=== PATIENT | male | born 1965 | race Caucasian/White ===

== ENCOUNTER 2021-04-13 19:37 | Inpatient (IN) | payer OTHER ==
[2021-04-13] MEDS ORDERED: MENTHOL/PHENOL 1 EACH UD MM PRN (22:10)
[2021-04-13] MEDS ORDERED: MAG HYDROX/AL HYDROX/SIMETH 30 ML UNIT-DOSE CUP PO PRN (22:10)
[2021-04-13] MEDS ORDERED: MAGNESIUM CITRATE 300 ML BOTTLE PO PRN (22:10)
[2021-04-13] MEDS ORDERED: ACETAMINOPHEN 325 MG TABLET (FP) PO PRN ×2 (22:10)
[2021-04-13] MEDS ORDERED: IBUPROFEN 400 MG TABLET (FP) PO PRN (22:10)
[2021-04-13] MEDS ORDERED: BISMUTH SUBSALICYLATE 524 MG/30 ML PO PRN (22:10)
[2021-04-13] MEDS ORDERED: MAGNESIUM HYDROX 2400MG/30ML ORAL SUSPENSION 30 ML CUP PO PRN (22:10)
[2021-04-13] MEDS ORDERED: diazePAM 5 MG TABLET PO PRN (22:12)
[2021-04-13 22:48] VITALS: BMI 18.6
[2021-04-14] MEDS: ONDANSETRON *ODT* 4 MG TABLET SL PRN (02:03)
[2021-04-14] MEDS: diazePAM 5 MG TABLET PO SCH ×5 (02:03→22:12)
[2021-04-14] MEDS ORDERED: PANTOPRAZOLE 40 MG TABLET PO ONE (09:00)
[2021-04-14] MEDS: hydrOXYzine PAMOATE 25 MG CAPSULE (FP) PO PRN ×3 (09:17→20:11)
[2021-04-14] MEDS ORDERED: PANTOPRAZOLE 40 MG TABLET PO SCH (10:00)
[2021-04-14] MEDS ORDERED: HYDROCHLOROTHIAZIDE 12.5 MG CAPSULE (FP) PO SCH (10:00)
[2021-04-14] MEDS ORDERED: VALSARTAN 160 MG TABLET PO SCH (10:00)
[2021-04-14] MEDS: PRENATAL VITAMINS W/ FOLIC ACID TABLET (FP) PO SCH (10:23)
[2021-04-14 10:37] LABS: HEMATOCRIT 43.2 % (35.4-49); HEMOGLOBIN 14.6 GM/dL (11.7-16.9); MCHC 33.8 g/dl (32.0-35.9); MEAN CELL VOLUME 97.8 fl (80-96); MEAN PLT VOLUME 8.5 fl (7.5-11.1); PLATELET COUNT 221 10^3/uL (134-434); RBC 4.42 M/mm3 (4.00-5.60); RDW 14.9 % (11.9-15.9); WHITE BLOOD COUNT 7.6 K/mm3 (4.0-10.0)
[2021-04-14 11:02] LABS: ALBUMIN 3.6 g/dl (3.4-5.0)
[2021-04-14 11:07] LABS: CREATININE 2.8 mg/dL (0.55-1.3)
[2021-04-14 11:08] LABS: TOT PROT 6.8 g/dl (6.4-8.2)
[2021-04-14 11:09] LABS: CALCIUM 8.8 mg/dL (8.5-10.1)
[2021-04-14 11:18] LABS: BLOOD UREA NITROGEN 38.6 mg/dL (7-18)
[2021-04-14 11:59] LABS: BILIRUBIN,TOTAL 0.8 mg/dL (0.2-1)
[2021-04-14] MEDS ORDERED: PATIENT'S OWN MEDICATION (NON-FORMULARY) (Valsartan/Hydrochlorothiazide [Valsartan-Hctz 16 PO SCH (12:15)
[2021-04-14] MEDS ORDERED: MELATONIN 5 MG TABLETS PO SCH (22:00)
[2021-04-14] MEDS ORDERED: THIAMINE HCL 100 MG TABLET (FP) PO SCH (22:00)
[2021-04-14] MEDS: METHOCARBAMOL 500 MG TABLET PO PRN (22:11)
[2021-04-15] MEDS ORDERED: PATIENT'S OWN MEDICATION (NON-FORMULARY) (Omeprazole [Omeprazole] 40 MG) PO SCH (06:00)
[2021-04-15] MEDS ORDERED: PANTOPRAZOLE 40 MG TABLET PO SCH (06:00)
[2021-04-15] MEDS: diazePAM 5 MG TABLET PO SCH ×2 (06:18→15:13)
[2021-04-15] MEDS ORDERED: PATIENT'S OWN MEDICATION (NON-FORMULARY) (Valsartan/Hydrochlorothiazide [Valsartan-Hctz 16 PO SCH (10:00)
[2021-04-15] MEDS ORDERED: PATIENT'S OWN MEDICATION (NON-FORMULARY) (Omeprazole [Omeprazole] 20 MG Tablet.Dr) PO SCH (10:00)
[2021-04-15] MEDS: hydrOXYzine PAMOATE 25 MG CAPSULE (FP) PO PRN (10:25)
[2021-04-15] MEDS: METHOCARBAMOL 500 MG TABLET PO PRN (10:25)
[2021-04-15] MEDS: PRENATAL VITAMINS W/ FOLIC ACID TABLET (FP) PO SCH (10:25)
[2021-04-15] MEDS: hydrOXYzine PAMOATE 50 MG CAPSULE (FP) PO SCH ×2 (11:35→20:13)
[2021-04-15 13:59] LABS: ALBUMIN 3.3 g/dl (3.4-5.0); BLOOD UREA NITROGEN 36.8 mg/dL (7-18); CALCIUM 8.5 mg/dL (8.5-10.1)
[2021-04-15 14:02] LABS: CREATININE 1.8 mg/dL (0.55-1.3); PHOSPHOROUS 2.8 mg/dL (2.5-4.9)
[2021-04-15] MEDS: ONDANSETRON *ODT* 4 MG TABLET SL PRN (14:16)
[2021-04-15 18:01] VITALS: BP 121/76; PULSE 75; TEMP 98.6
[2021-04-16] MEDS ORDERED: diazePAM 5 MG TABLET PO SCH (06:00)
[2021-04-17] MEDS ORDERED: diazePAM 5 MG TABLET PO ONE (06:00)
== END 2021-04-15 20:00 | disposition left against medical advice (07) | DRG 894 ==
LOC: YASAS 19:37 → Y6N 23:02
PROVIDERS: ADMIT Allergy & Immunology; ATTEND Allergy & Immunology
PROC: HZ2ZZZZ Detoxification Services for Substance Abuse Treatment (ICD-10-PCS; principal; 2021-04-13)
DX: F10.230 Alcohol dependence with withdrawal, uncomplicated (principal); E46 Unspecified protein-calorie malnutrition; Z68.1 Body mass index [BMI] 19.9 or less, adult; F10.220 Alcohol dependence with intoxication, uncomplicated; I10 Essential (primary) hypertension; K21.9 Gastro-esophageal reflux disease without esophagitis; Z87.81 Personal history of (healed) traumatic fracture
CPT/HCPCS: 36415; 80053; 80069; 85027; 86780; C9803; Q0162; U0003; U0005